=== PATIENT | male | born 1960 | race Caucasian/White ===

== ENCOUNTER 2022-02-18 00:36 | Day surgery (SDC) | payer BC, SELFPAY ==
[2022-02-02 14:11] VITALS: BMI 30.4
[2022-02-18 11:49] VITALS: BP 140/67; PULSE 67; RESP 18; TEMP 36.4; O2SAT 98
[2022-02-18] MEDS: LACTATED RINGERS 1,000 ML 150 ML IV CONT (11:50)
--- NOTE | 2022-02-18 12:14 | P.HP_ITS ---
History of Present Illness History of Present Illness Consent: Risks, benefits, and alternatives have been discussed and questions answered. Patient agrees to proceed with procedure. Chief complaint: neoplasm screening Narrative: Alex Arthur is a 61 year old male Referred for colon cancer screening. His last colonoscopy was 10 years ago. Review of Systems Review of Systems: All systems reviewed & are unremarkable except as noted in HPI and below PMFSH Past Medical History Medical History Hyperlipidemia JOSÉ MIGUEL (obstructive sleep apnea) Overweight (BMI 25.0-29.9) Social History Social History Years smoked: 1,985 Smoking status: Former smoker Tobacco type: cigarettes Substance use type: does not use Living arrangements: with family Spiritual care concerns: No Meds Home Medications and Allergies Home Medications Medication Instructions Recorded Confirmed Type finasteride 5 mg tablet 5 mg PO DAILY 02/02/22 02/02/22 History metronidazole 0.75 % topical gel 1 applic topical DAILY 02/02/22 02/02/22 Histor y tamsulosin 0.4 mg capsule 0.4 mg PO DAILY 02/02/22 02/02/22 History Allergies Allergy/AdvReac Type Severity Reaction Status Date / Time No Known Allergies Allergy Unknown Verified 02/02/22 14:12 Vital Signs Vital Signs - 24 hr 02/18/22 11:49 Temperature 36.4 C L Pulse Rate 67 Respiratory Rate 18 Blood Pressure 140/67 Pulse Oximetry 98 Oxygen Delivery Room Air Exam Const: General: alert Orientation/consciousness: patient oriented x3 Resp: Auscultation: clear to auscultation bilaterally Cardio: Rhythm: regular rhythm GI: GI Palp: Yes Soft to palpation and No Tenderness to palpation present (GI) Neuro: General: patient oriented x3 Assessment and Plan Assessment and plan (1) Colon cancer screening: Code(s): Z12.11 - Encounter for screening for malignant neoplasm of colon Status: Acute Assessment and Plan: Colonoscopy with possible biopsy or polypectomy or cautery or injection of substances.
--- NOTE | 2022-02-18 12:23 | P.PNAN_ITS ---
Anes - Initial Pre Proc Eval Procedure: Operation Date: 02/18/22 13:00 Proposed Procedures p Screening Colonoscopy - Calvin Dempsey MD Date/Time: 02/18/22 12:23 Surgeon: Calvin Dempsey MD Pre Op Diagnosis: neoplasm screening Patient Data Age: 61 Gender: M Height: 1.73 m Weight: 87.8 kg Last Vital Signs Temp 36.4 C L 02/18/22 11:49 Pulse 67 02/18/22 11:49 Resp 18 02/18/22 11:49 BP 140/67 02/18/22 11:49 Pulse Ox 98 02/18/22 11:49 O2 Del Method Room Air 02/18/22 11:49 Allergies Allergy/AdvReac Type Severity Reaction Status Date / Time No Known Allergies Allergy Unknown Verified 02/02/22 14:12 Home Medications Medication Instructions Recorded Confirmed Type finasteride 5 mg tablet 5 mg PO DAILY 02/02/22 02/02/22 History metronidazole 0.75 % topical gel 1 applic topical DAILY 02/02/22 02/02/22 History tamsulosin 0.4 mg capsule 0.4 mg PO DAILY 02/02/22 02/02/22 History Patient hx anesthesia problems: none Family hx anesthesia problems: none Results Review: All pre-operative results and documents have been reviewed as part of the pre- operative evaluation. [facility] Past Medical History Medical History (Updated 02/18/22 @ 12:24 by Jean-Pierre Christie MD) Hyperlipidemia JOSÉ MIGUEL (obstructive sleep apnea) Overweight (BMI 25.0-29.9) Social History Social History Years smoked: 1,985 Smoking status: Former smoker Tobacco type: cigarettes Substance use type: does not use Living arrangements: with family Spiritual care concerns: No Anes - Eval Final PreProcedure Day of Procedure 02/18/22 12:23 Patient weight: overweight Heart: regular rate and rhythm Lungs: clear to auscultation and normal air movement Airway: Mallampati scale class II Neurological: alert and oriented Last oral intake: >/= 8 hours ASA classification: II Emergent: no Anesthetic plan: proceed Anesthesia type and monitoring: general GIVS Results Review: All pre-operative results and documents have been reviewed as part of the pre- operative evaluation. Informed Consent: The patient's anesthetic plan and its attendant risks and benefits were discussed with the patient/family/POA. Questions were solicited and answers provided to the satisfaction of the patient/family/POA.
[2022-02-18 13:19] VITALS: BP 108/65; PULSE 67; RESP 21; O2SAT 94
[2022-02-18 13:29] VITALS: BP 116/67; PULSE 75; RESP 21; O2SAT 97
[2022-02-18 13:39] VITALS: BP 130/74; PULSE 73; RESP 15; O2SAT 97
== END 2022-02-18 13:48 | disposition home or self-care (01) ==
PROVIDERS: PCP Family Medicine; Visit Provider Internal Medicine Gastroenterology
PROC: 0DJD8ZZ Inspection of Lower Intestinal Tract, Via Natural or Artificial Opening Endoscopic (ICD-10-PCS; CPT 45378; principal; 2022-02-18 13:00)
DX: Z12.11 Encounter for screening for malignant neoplasm of colon (principal); K57.30 Diverticulosis of large intestine without perforation or abscess without bleeding; K63.5 Polyp of colon; E78.5 Hyperlipidemia, unspecified; G47.33 Obstructive sleep apnea (adult) (pediatric); Z87.891 Personal history of nicotine dependence
CPT/HCPCS: 45385; 45380; 88305; J2704; J7120